=== PATIENT | female | born 1990 | race Caucasian/White ===

== ENCOUNTER 2024-07-17 11:26 | Emergency (ER) | payer MEDICARE, SELFPAY ==
[2024-07-17 11:41] VITALS: BP 106/74; PULSE 73; TEMP 36.8; O2SAT 99; BMI 17.6
--- NOTE | 2024-07-17 12:00 | ED.ABDPAIN1 ---
HPI - Abdominal Pain General Chief Complaint: Abdominal Pain Stated Complaint: PELVIS PAIN AND PRESSURE Time Seen by Provider: 07/17/24 11:59 Source: patient Mode of arrival: Wheelchair Limitations: no limitations History of Present Illness HPI narrative: 34-year-old female presents for lower abdominal pain. She has been evaluated for this on multiple occasions over the past week since it has been happening. She was at another hospital's emergency department twice where she had workup including blood test, urinalysis, and CAT scan. She saw her family doctor who told her she has uterine prolapse and the patient has an appointment with a marketing operations specialist the day after tomorrow. The patient was given a prescription for a Percocet and she has only taken one of them. She is also on Macrobid. Related Data Home Medications ?Medication ?Instructions ?Recorded ?Confirmed albuterol sulfate 90 mcg/actuation 2 puff inhalation Q6H PRN 07/17/24 07/17/24 aerosol inhaler (Ventolin HFA) bronchospasm ergocalciferol (vitamin D2) 1,250 1,250 mcg PO .weekly 07/17/24 07/17/24 mcg (50,000 unit) capsule fluticasone propionate 50 1 spray intranasal QDAY 07/17/24 07/17/24 mcg/actuation nasal spray,suspension gabapentin 300 mg capsule 300 mg PO Q8H 07/17/24 07/17/24 hydroxyzine HCl 50 mg tablet 50 mg PO QDAY 07/17/24 07/17/24 milnacipran 50 mg tablet (Savella) 50 mg PO QDAY 07/17/24 07/17/24 montelukast 10 mg tablet 10 mg PO QDAY 07/17/24 07/17/24 nitrofurantoin 100 mg PO Q12H 07/17/24 07/17/24 monohydrate/macrocrystals 100 mg capsule oxycodone-acetaminophen 5 mg-325 1 tab PO Q8H PRN pain 07/17/24 07/17/24 mg tablet pantoprazole 40 mg tablet,delayed 40 mg PO QDAY 07/17/24 07/17/24 release venlafaxine 225 mg tablet,extended 225 mg PO QDAY 07/17/24 07/17/24 release 24 hr Allergies Allergy/AdvReac Type Severity Reaction Status Date / Time No Known Drug Allergies Allergy Verified 07/17/24 11:48 Review of Systems ROS Narrative A ten point review of systems is negative except as noted above. PFSH PFSH Social History Little interest or pleasure in doing things: not at all Feeling down, depressed, or hopeless: not at all Exam Narrative Exam Narrative: Nurses note and vital signs reviewed and patient is not hypoxic. General: The patient appears uncomfortable. Skin: Warm, dry, no pallor noted. There is no rash noted. Head: Normocephalic, atraumatic Eye: Normal conjunctiva, no drainage Ears, Nose, Mouth, and Throat: oral mucosa is moist. Nares patent. Cardiovascular: Regular Rate and Rhythm Respiratory: Patient is in no distress, no accessory muscle use, lungs are clear to auscultation, no wheezing, rales or rhonchi Back: non-tender GI: Soft and nondistended. Diffusely tender and without mass Musculoskeletal: The patient has no evidence of calf tenderness, no pitting edema, symmetrical pulses noted bilaterally Neurological: A&O, normal speech Psychiatric: Cooperative Constitutional Vital Signs, click to edit/add: Last Vital Signs Temp 98.2 F 07/17/24 11:41 Pulse 73 07/17/24 11:41 Resp 20 07/17/24 11:41 BP 106/74 07/17/24 11:41 Pulse Ox 99 07/17/24 11:41 O2 Del Method Room Air 07/17/24 11:41 Course Vital Signs Vital signs: Vital Signs Temperature 98.2 F 07/17/24 11:41 Pulse Rate 73 07/17/24 11:41 Respiratory Rate 20 07/17/24 11:41 Blood Pressure 106/74 07/17/24 11:41 Pulse Oximetry 99 07/17/24 11:41 Oxygen Delivery Method Room Air 07/17/24 11:41 Temperature 98.2 F 07/17/24 11:41 Pulse Rate 73 07/17/24 11:41 Respiratory Rate 20 07/17/24 11:41 Blood Pressure 106/74 07/17/24 11:41 Pulse Oximetry 99 07/17/24 11:41 Oxygen Delivery Method Room Air 07/17/24 11:41 MDM - Abdominal Pain MDM Narrative Medical decision making narrative: Blood work and urinalysis are negative. I have reviewed her records from other facility and she had a negative CAT scan. She was given IM Toradol and feels much better and is able to be discharged home. Findings are discussed with the patient and she will see her marketing operations specialist at her appointment the day after tomorrow. Her working diagnosis is uterine prolapse. Differential Diagnosis Differential diagnosis: Likely abdominal pain, constipation and gastroenteritis Lab Data Attestation: I reviewed the patient's lab results. Labs: Lab Results 07/17/24 07/17/24 Range/Units 12:19 12:40 WBC 7.2 (4.0-11.0) 10^3/uL RBC 4.22 (4.20-5.40) 10^6/uL Hgb 12.9 (12.0-16.0) g/dL Hct 37.8 (36.0-48.0) % MCV 89.6 (81.0-99.0) fL MCH 30.6 (26.7-34.0) pg MCHC 34.1 (29.9-35.2) g/dL RDW 14.0 (11.0-15.0) % Plt Count 176 (150-450) 10^3/uL MPV 10.6 (9.5-13.5) fL Neut % (Auto) 56.1 (43.0-75.0) % Lymph % (Auto) 38.1 (20.5-60.0) % [place] % (Auto) 5.1 (1.7-12.0) % Eos % (Auto) 0.3 L (0.9-7.0) % Baso % (Auto) 0.1 L (0.2-2.0) % Neut # (Auto) 4.0 (1.4-6.5) 10^3/uL Lymph # (Auto) 2.7 (1.2-3.8) 10^3/uL [place] # (Auto) 0.4 (0.3-0.8) 10^3/uL Eos # (Auto) 0.0 (0.0-0.7) 10^3/uL Baso # (Auto) 0.0 (0.0-0.1) 10^3/uL Abs Immat Gran (auto) 0.02 (0.00-0.03) 10^3/uL Imm/Tot Granulo (auto) 0.3 (0.0-0.5) % Sodium 140 (136-145) mmol/L Potassium 4.2 (3.5-5.1) mmol/L Chloride 104 (98-107) mmol/L Carbon Dioxide 27.9 (21.0-32.0) mmol/L Anion Gap 12.3 BUN 11.0 (7.0-18.0) mg/dL Creatinine 0.90 (0.55-1.02) mg/dL Est GFR ( Amer) >60 (>=60 mL/min/1.73m^2) Est GFR (Non-Af Amer) >60 (>=60 mL/min/1.73m^2) BUN/Creatinine Ratio 12.2 Glucose 73 L (74-106) mg/dL Calcium 8.8 (8.5-10.1) mg/dL Serum HCG, Qual Negative (NEGATIVE) Urine Color Dk yellow (YELLOW) Urine Clarity Clear (CLEAR) Urine pH 6.5 (5.0-9.0) Ur Specific [place] 1.025 (1.005-1.025) Urine Protein Negative (NEG/TRACE) mg/dL Urine Glucose (UA) Negative (NEGATIVE) mg/dL Urine Ketones Trace A (NEGATIVE) mg/dL Urine Occult Blood Negative (NEGATIVE) Urine Nitrite Negative (NEGATIVE) Urine Bilirubin Negative (NEGATIVE) Urine Urobilinogen 0.2 (0.2-1.0) EU/dL Ur Leukocyte Esterase Negative (NEGATIVE) Urine RBC 0-2 (0-2) #/HPF Urine WBC 0-2 A (NONE SEEN) #/HPF Ur Squamous Epith Cells Few A (NONE/RARE) #/LPF Urine Crystals None seen (None Seen) #/HPF Urine Bacteria Trace A (NONE SEEN) #/HPF Urine Casts Seen A (NONE SEEN) #/LPF Hyaline Casts Rare Urine Mucus Trace A (NONE SEEN) Discharge Plan Discharge Chief Complaint: Abdominal Pain Clinical Impression: Abdominal pain Patient Disposition: Home, Self-Care Time of Disposition Decision: 13:03 Condition: Good Mode of Transportation: Private Vehicle Prescriptions / Home Meds: No Action albuterol sulfate [Ventolin HFA] 90 mcg/actuation HFA aerosol inhaler 2 puff INHALATION Q6H PRN (Reason: bronchospasm) venlafaxine 225 mg tablet extended release 24hr 225 mg PO QDAY pantoprazole 40 mg tablet,delayed release (DR/EC) 40 mg PO QDAY oxycodone-acetaminophen 5-325 mg tablet 1 tab PO Q8H PRN (Reason: pain) nitrofurantoin monohyd/m-cryst 100 mg capsule 100 mg PO Q12H montelukast 10 mg tablet 10 mg PO QDAY [place] 50 mg tablet 50 mg PO QDAY hydroxyzine HCl 50 mg tablet 50 mg PO QDAY gabapentin 300 mg capsule 300 mg PO Q8H fluticasone propionate 50 mcg/actuation spray,suspension 1 spray INTRANASAL QDAY ergocalciferol (vitamin D2) 1,250 mcg (50,000 unit) capsule 1,250 mcg PO .weekly Print Language: Turkmen Instructions: Abdominal Pain (ED) Additional Instructions: See your marketing operations specialist at your appointment on Friday Referrals: Sandra Johnson NP [Primary Care Provider] - 1 week
[2024-07-17] MEDS: KETOROLAC TROMETHAMINE 60 MG/2 ML VIAL IM (12:10)
[2024-07-17 12:33] LABS: Basophils Percent Auto 0.1 % (0.2-2.0); Eosinophils Percent Auto 0.3 % (0.9-7.0); Hematocrit 37.8 % (36.0-48.0); Hemoglobin 12.9 g/dL (12.0-16.0); Immature Granulocytes Abs Auto 0.02 10^3/uL (0.00-0.03); Immature Granulocytes Pct Auto 0.3 % (0.0-0.5); Lymphocytes Absolute Auto 2.7 10^3/uL (1.2-3.8); Lymphocytes Percent Auto 38.1 % (20.5-60.0); Mean Corpuscular HGB Conc 34.1 g/dL (29.9-35.2); Mean Corpuscular Hemoglobin 30.6 pg (26.7-34.0); Mean Corpuscular Volume 89.6 fL (81.0-99.0); Mean Platelet Volume 10.6 fL (9.5-13.5); Monocytes Absolute Auto 0.4 10^3/uL (0.3-0.8); Monocytes Percent Auto 5.1 % (1.7-12.0); Neutrophils Percent Auto 56.1 % (43.0-75.0); Platelet Count 176 10^3/uL (150-450); Red Blood Count 4.22 10^6/uL (4.20-5.40); White Blood Count 7.2 10^3/uL (4.0-11.0)
[2024-07-17 12:45] LABS: Anion Gap 12.3; BUN Creatinine Ratio 12.2; Calcium 8.8 mg/dL (8.5-10.1); Carbon Dioxide 27.9 mmol/L (21.0-32.0); Chloride 104 mmol/L (98-107); Estimated GFR (African America >60 (>=60 mL/min/1.73m^2); Estimated GFR (Non-African Ame >60 (>=60 mL/min/1.73m^2); Glucose 73 mg/dL (74-106); Potassium 4.2 mmol/L (3.5-5.1); Sodium 140 mmol/L (136-145)
[2024-07-17 12:47] LABS: Bilirubin Urine NEGATIVE (NEGATIVE); Blood Urine NEGATIVE (NEGATIVE); Clarity Urine CLEAR (CLEAR); Glucose Urine UA NEGATIVE (NEGATIVE); Ketones Urine TRACE mg/dL (NEGATIVE); Leukocyte Esterase Urine NEGATIVE (NEGATIVE); Nitrite Urine NEGATIVE (NEGATIVE); Protein Urine NEGATIVE (NEG/TRACE); Specific Gravity Urine 1.025 (1.005-1.025); Urobilinogen Urine 0.2 EU/dL (0.2-1.0); pH Urine 6.5 (5.0-9.0)
[2024-07-17 12:48] LABS: Color Urine DK YELLOW (YELLOW)
[2024-07-17 12:54] LABS: HCG Qualitative NEGATIVE (NEGATIVE); Internal Control Within Normal Limits
[2024-07-17 12:55] LABS: Bacteria Urine TRACE #/HPF (NONE SEEN); Crystals Seen? None Seen #/HPF (None Seen); RBC Urine 0-2 #/HPF (0-2); Squamous Epithelial Cell Urine FEW #/LPF (NONE/RARE); WBC Urine 0-2 #/HPF (NONE SEEN)
[2024-07-17 12:56] LABS: Cast Seen? SEEN #/LPF (NONE SEEN); Hyaline Casts Urine RARE; Mucus Urine TRACE (NONE SEEN)
== END 2024-07-17 13:14 | disposition home or self-care (01) ==
PROVIDERS: Emergency Provider Emergency Medicine; PCP Nurse Practitioner Adult Health
DX: R10.30 Lower abdominal pain, unspecified (principal)
CPT/HCPCS: 36415; 80048; 81001; 84703; 85025; 96372; 99284; J1885